=== PATIENT | male | born 1990 | race Caucasian/White ===

== ENCOUNTER 2021-05-04 08:46 | Emergency (ER) | payer BC ==
[2021-05-04 10:12] LABS: SARS-CoV-2 NAA Rapid Test DETECTED (NotDetected)
== END 2021-05-04 10:30 | disposition home or self-care (01) ==
LOC: ERS 08:46
DX: U07.1 COVID-19 (principal)
CPT/HCPCS: 99283; U0002; U0005

== ENCOUNTER 2022-05-01 12:32 | Day surgery (SDC) | payer BC ==
[2022-05-01] MEDS ORDERED: fentaNYL Citrate/PF 100 MCG/2 ML SYRINGE ONE (14:22)
[2022-05-01] MEDS ORDERED: Sodium Chloride 0.9% 100 ML ONE (14:23)
[2022-05-01] MEDS ORDERED: Piperacillin/Tazobactam 3.375 GM VIAL ONE (14:23)
[2022-05-01] MEDS ORDERED: Dexamethasone 20 MG/5 ML VIAL ONE (14:32)
[2022-05-01] MEDS ORDERED: Rocuronium Bromide 10 MG/ML (10ML VIAL) ONE (14:32)
[2022-05-01] MEDS ORDERED: Ondansetron PF 4 MG/2 ML Vial ONE (14:32)
[2022-05-01] MEDS ORDERED: Lidocaine 1% PF 5 ML VIAL ONE (14:32)
[2022-05-01] MEDS ORDERED: PROPOFOL 200 MG/20 ML VIAL ONE (14:32)
[2022-05-01] MEDS ORDERED: Glycopyrrolate 0.2 MG/ML 5 ML SYRINGE ONE (14:32)
[2022-05-01] MEDS ORDERED: Ketorolac Tromethamine 30 MG/ML VIAL ONE (14:32)
[2022-05-01] MEDS ORDERED: HYDROcodone/Acetaminophen 5/325 mg Tablet ONE (16:51)
== END 2022-05-01 17:50 | disposition home or self-care (01) ==
LOC: SDC 12:32
PROVIDERS: ATTEND Surgery
PROC: 0DTJ4ZZ Resection of Appendix, Percutaneous Endoscopic Approach (ICD-10-PCS; principal; 2022-05-01)
DX: K35.80 Unspecified acute appendicitis (principal)
CPT/HCPCS: 88304; A4649; C1776; J1100; J1885; J2405; J2543; J2704; J2710; J3490

== ENCOUNTER 2023-10-27 06:54 | Day surgery (SDC) | payer BC ==
[2023-10-21 14:34] VITALS: BMI 28.8
[2023-10-27] MEDS ORDERED: fentaNYL PF 100 MCG/2 ML SYRINGE ONE (08:37)
[2023-10-27] MEDS ORDERED: PROPOFOL 20 ML ONE (08:38)
[2023-10-27] MEDS ORDERED: Bupivacaine 0.25% HCL 30 ML VIAL ONE (08:38)
[2023-10-27] MEDS ORDERED: Lidocaine 1% PF 5 ML VIAL ONE (08:38)
[2023-10-27] MEDS ORDERED: Rocuronium Bromide 10 MG/ML (10ML VIAL) ONE (08:38)
[2023-10-27] MEDS ORDERED: EPINEPHrine 1 MG/ML VIAL ONE (08:38)
[2023-10-27] MEDS ORDERED: Ondansetron PF 4 MG/2 ML Vial ONE (08:38)
[2023-10-27] MEDS ORDERED: Midazolam HCl 2 mg/2 ml Vial ONE (08:38)
[2023-10-27] MEDS ORDERED: Dexamethasone 20 MG/5 ML VIAL ONE (08:38)
[2023-10-27] MEDS ORDERED: LevoFLOXacin D5W 500 mg (100 mL) BAG ONE (08:50)
[2023-10-27] MEDS ORDERED: ePHEDrine Sulfate 50 MG/10 ML VIAL ONE (09:32)
[2023-10-27] MEDS ORDERED: SUGAMMADEX SODIUM 200 MG/2 ML VIAL ONE (09:48)
[2023-10-27] MEDS ORDERED: Ketorolac Tromethamine 30 MG (1 mL) VIAL ONE (09:49)
== END 2023-10-27 12:15 | disposition home or self-care (01) ==
LOC: SDC 06:54
PROVIDERS: ATTEND Surgery
PROC: 0YQ54ZZ Repair Right Inguinal Region, Percutaneous Endoscopic Approach (ICD-10-PCS; principal; 2023-10-27)
DX: K40.90 Unilateral inguinal hernia, without obstruction or gangrene, not specified as recurrent (principal); Z98.890 Other specified postprocedural states
CPT/HCPCS: A4314; C1781; J0171; J1100; J1885; J1956; J2250; J2405; J2704; S0020